=== PATIENT | male | born 1980 | race Two or more races ===

== ENCOUNTER 2023-04-10 11:34 | Emergency (ER) | payer OTHER ==
[~2023-04-10] VITALS: Ht 162.6 cm; Wt 58.8 kg
[2023-04-10 11:42] VITALS: BP 130/95; TEMP 97.7
[2023-04-10 13:10] VITALS: PULSE 88; RESP 18; O2SAT 96
== END 2023-04-10 13:20 | disposition home or self-care (01) ==
LOC: ER 11:34
DX: S00.83XA Contusion of other part of head, initial encounter (principal); R51.9 Headache, unspecified; W20.8XXA Other cause of strike by thrown, projected or falling object, initial encounter; Y93.89 Activity, other specified; Y92.89 Other specified places as the place of occurrence of the external cause; Y99.8 Other external cause status